=== PATIENT | male | born 1990 | race African-American/Black ===

== ENCOUNTER 2020-03-16 17:41 | Emergency (ER) | payer MEDICAID ==
[~2020-03-16] VITALS: Ht 188 cm; Wt 100.0 kg
[2020-03-16 20:01] VITALS: BP 120/81
== END 2020-03-16 21:00 | disposition left against medical advice (07) ==
LOC: EMS 17:44
DX: R51.9 Headache, unspecified (principal); Z53.21 Procedure and treatment not carried out due to patient leaving prior to being seen by health care provider